=== PATIENT | male | born 2005 | race Hispanic/Latino ===

== ENCOUNTER 2024-06-03 17:45 | Emergency (ER) | payer OTHER ==
[2024-06-03] MEDS ORDERED: Mag-Al 1200 mg/1200 mg/30 ML UDCUP ONE (18:49)
[2024-06-03] MEDS ORDERED: Lidocaine Viscous Sol 2% 15 ml UD Cup ONE (18:49)
[2024-06-03] MEDS ORDERED: Ondansetron ODT 4 MG TAB ONE (18:49)
[2024-06-03] MEDS ORDERED: Lidocaine 20 ML, Aluminum & Magnesium Hydroxide 30 ML, Donnatal Elixir 32.4 MG SSW SCH (19:00)
[2024-06-03 19:03] LABS: #Basophils 0.03 10x3/uL (0.0-0.2); %Basophils 0.4 % (0.0-1.0); %Eosinophils 1.9 % (0.0-10.0); %Lymphocytes 24.5 % (28.0-48.0); %Monocytes 8.3 % (0.0-4.0); %Neutrophils 64.4 % (31.0-61.0); Hematocrit 45.1 % (42.0-52.0); Hemoglobin 15.4 g/dL (14.0-18.0); Mean Corpuscular HGB CONC 34.1 g/dL (32.0-36.0); Mean Corpuscular Hemoglobin 29.6 pg (25.0-35.0); Mean Corpuscular Volume 86.6 fL (78.0-98.0); Mean Platelet Volume 11.9 fL (7.4-10.4); Platelet Count 222 10x3/uL (130-400); RBC Distribution Width 12.6 % (11.5-14.5); Red Blood Cell (RBC) Count 5.21 mill/uL (4.00-5.20)
[2024-06-03 19:18] LABS: ALT (SGPT) 15 U/L (8-55); AST (SGOT) 53 U/L (5-34); Albumin 4.6 g/dL (3.5-5.0); Alkaline Phosphatase 111 U/L (50-130); Anion Gap 13 mmol/L (10-20); BUN (Urea Nitrogen) 13 mg/dL (8.9-20.6); Bilirubin, Total 0.3 mg/dL (0.2-1.2); Calc. Creatinine Clearance 0 mL/min (70-130); Calcium 9.4 mg/dL (7.8-10.44); Carbon Dioxide 25 mmol/L (22-29); Chloride 103 mmol/L (98-107); Estimated GFR 118; Globulin 3.1 g/dL (2.4-3.5); Glucose 100 mg/dL (70-105); Lipase 13 U/L (8-78); Potassium 4.5 mmol/L (3.5-5.1); Protein, Total 7.7 g/dL (6.0-8.3); Sodium 136 mmol/L (136-145)
== END 2024-06-03 20:09 | disposition home or self-care (01) ==
LOC: ERS 17:45
DX: R10.13 Epigastric pain (principal); Z55.6 Problems related to health literacy
CPT/HCPCS: 36415; 80053; 83690; 85025; 99283; Q0162